=== PATIENT | male | born 1995 | race African-American/Black ===

== ENCOUNTER 2023-03-04 15:22 | Outpatient (REF) | payer OTHER, SELFPAY ==
--- NOTE | ~2023-03-04 | XR_ITS ---
EXAMINATION: XR ANKLE, RIGHT CLINICAL INFORMATION: Right ankle sprain COMPARISON: None available. TECHNIQUE: AP, lateral, and mortise views of the right ankle. FINDINGS: There is no evidence of acute fracture or dislocation of the right ankle. Ankle mortise appears intact. There is some mild soft tissue swelling present. XR/XR ankle RT min 3V IMPRESSION: No significant bony abnormality of the right ankle identified.
== END 2023-03-04 15:23 | disposition home or self-care (01) ==
LOC: HO.HMGCX 15:22
PROVIDERS: Visit Provider Internal Medicine
DX: S93.401A Sprain of unspecified ligament of right ankle, initial encounter (principal)
CPT/HCPCS: 73610